=== PATIENT | male | born 1960 | race Hispanic/Latino ===

== ENCOUNTER 2023-02-14 08:43 | Emergency (ER) | payer OTHER, MEDICARE ==
[~2023-02-14] VITALS: Ht 175.3 cm; Wt 129.3 kg
[~2023-02-14 08:43] MED LIST: NAPR-1180 PO
[2023-02-14 08:44] VITALS: BP 148/81; PULSE 76; RESP 16
[2023-02-14 09:58] LABS: APPEARANCE,URINE CLEAR (CLEAR); BILIRUBIN,URINE NEGATIVE (NEGATIVE); COLOR,URINE YELLOW (YELLOW); GLUCOSE, URINE (UA) NEGATIVE (NEGATIVE); KETONES,URINE NEGATIVE (NEGATIVE); LEUKOCYTE ESTERASE ,URINE NEGATIVE Leu/uL (NEGATIVE); NITRATE,URINE NEGATIVE (NEGATIVE); OCCULT BLOOD,URINE SMALL (NEGATIVE); PH,URINE 5.5 (5.0-8.0); PROTEIN,URINE 20 mg/dL (NEGATIVE); UROBILINOGEN,URINE 0.2 mg/dL (0.2-1.0)
[2023-02-14] MEDS ORDERED: ACETAMINOPHEN WITH CODEINE 1 TAB TAB PO ONE (10:00)
[2023-02-14 10:03] LABS: ADD UA MICROSCOPIC YES
[2023-02-14 10:46] LABS: BACTERIA,URINE RARE /HPF (None Seen); MUCUS,URINE RARE LPF (None Seen); RBC,URINE 0-1 /HPF (0-1); SQUAMOUS EPITHELIAL CELL,UR FEW /HPF (0-2)
[2023-02-14] MEDS ORDERED: MELO5CAP3 PO (12:45)
== END 2023-02-14 13:17 | disposition home or self-care (01) ==
LOC: EDH 08:43
DX: M16.11 Unilateral primary osteoarthritis, right hip (principal); F41.9 Anxiety disorder, unspecified
CPT/HCPCS: 73502; 81001